=== PATIENT | female | born 1975 | race Caucasian/White ===

== ENCOUNTER 2016-12-20 17:38 | Emergency (ER) | payer MEDICAID ==
[2016-12-20 17:49] VITALS: RESP 16; TEMP 98.8
[2016-12-20 18:17] LABS: COLOR YELLOW; LEUKOCYTE ESTERASE,URINE NEGATIVE (NEGATIVE); NITRITE,URINE NEGATIVE (NEGATIVE); PH,URINE 8.5 (5.0-7.5)
[2016-12-20 18:27] LABS: BACTERIA TRACE /hpf (NONE SEEN); MUCUS 1+ /lpf (NONE-1+); RBC,URINE OCCASIONAL /hpf (0-3); WBC,URINE OCCASIONAL /hpf (0-3)
--- NOTE | 2016-12-20 18:28 | EDPHY ---
H & P Stated Complaint: stomach bloating, chills, ? Time Seen by Provider: 12/20/16 17:54 HPI/ROS: CHIEF COMPLAINT: Abdominal bloating, question History by patient HISTORY OF PRESENT ILLNESS: 41-year-old woman with history of related DVTs presents complaining of abdominal bloating, nausea of, weight gain and late menses. Her last menstrual period was November 19. Patient states she had sex on November 29 and the condom broke and now she is 4 days late on her menses which are usually quite regular. Patient is currently breast- feeding. Patient states she has gotten while breast-feeding in the past and that urine tests are always negative even when she is . She denies any vaginal discharge or bleeding. She has had no fever chills. She has had some urinary frequency but no dysuria. She does have some mild low back pain. Patient states that she has gained 20 lb over the last month. She says she has a pulling sensation in her suprapubic region. She denies any abdominal pain. She denies constipation has been having normal stools. She denies diarrhea. She has been eating without difficulty. REVIEW OF SYSTEMS: As in HPI, and all other systems reviewed and are negative Source: Patient - Personal History LMP (Females 10-55): Over 28 Days Ago - Medical/Surgical History Hx Asthma: No Hx Chronic Respiratory Disease: No Hx Diabetes: No Hx Cardiac Disease: No Hx Renal Disease: No Hx Cirrhosis: No Hx Alcoholism: No Hx HIV/AIDS: No Hx Splenectomy or Spleen Trauma: No Other PMH: hypothyroid, PE - Social History Smoking Status: Never smoked - Physical Exam Exam: General Appearance: Alert, pleasant, nontoxic-appearing. Eyes: Pupils equal and round no pallor or injection. ENT, Mouth: Mucous membranes moist. Respiratory: Normal, effort, There are no retractions, lungs are clear to auscultation. Cardiovascular: Regular rate and rhythm. Gastrointestinal: Abdomen is obese, soft and nontender, no distention, no masses, bowel sounds normal. Back: No CVA tenderness Neurological: Awake, alert and oriented x 3, no pronator drift, normal gait, no pronator drift Skin: Warm and dry, no rashes. Musculoskeletal: Neck is supple nontender. Extremities are symmetrical, full range of motion. Psychiatric: Patient has normal affect, there is no agitation. Constitutional: Initial Vital Signs Temperature (C) 37.1 C 12/20/16 17:41 Heart Rate 78 12/20/16 17:41 Respiratory Rate 16 12/20/16 17:41 Blood Pressure 101/86 H 12/20/16 17:41 O2 Sat (%) 100 12/20/16 17:41 O2 Delivery Mode Room Air Allergies/Adverse Reactions: diphenhydramine HCl [From Benadryl] Allergy (Severe, Verified 12/20/16 17:50) sob metoclopramide HCl [From Reglan] Allergy (Severe, Verified 12/20/16 17:50) Anaphylaxis ibuprofen Allergy (Intermediate, Verified 12/20/16 17:50) rapid heart beat prednisone Allergy (Intermediate, Verified 12/20/16 17:50) rapid heart rate Home Medications: Medication Instructions Recorded Citalopram [CeleXA 20 MG] 40 mg 08/12/12 Loratadine [Claritin 10 mg] 08/12/12 Thyroid 65 mg PO 08/12/12 Medical Decision Making ED Course/Re-evaluation: 41-year-old woman presents complaining of abdominal bloating and concerned about . Urinalysis showed no evidence of infection and urine test was negative. Because patient was very concerned about and states that she has had negative urine test while in the past we did do a serum test which was also negative. The patient is only 4 days late on her menses however and so I am recommending she has a repeat test in a few more days to confirm that she is not . She otherwise has a benign exam, stable vital signs and is nontoxic-appearing. I recommended follow up with her primary care physician at [facility]. - Data Points Laboratory Results: 12/20/16 12/20/16 12/20/16 18:50 18:15 18:15 Beta HCG, Qual NEGATIVE Urine Color YELLOW Urine Appearance CLEAR Urine pH 8.5 H (5.0-7.5) Ur Specific [place] 1.015 (1.002-1.030) Urine Protein NEGATIVE (NEGATIVE) Urine Ketones NEGATIVE (NEGATIVE) Urine Blood NEGATIVE (NEGATIVE) Urine Nitrate NEGATIVE (NEGATIVE) Urine Bilirubin NEGATIVE (NEGATIVE) Urine Urobilinogen 0.2 EU EU (0.2-1.0) Ur Leukocyte Esterase NEGATIVE (NEGATIVE) Urine RBC OCCASIONAL /hpf /hpf (0-3) Urine WBC OCCASIONAL /hpf /hpf (0-3) Ur Epithelial Cells TRACE /lpf /lpf (NONE-1+) Urine Bacteria TRACE /hpf H /hpf (NONE SEEN) Urine Mucus 1+ /lpf /lpf (NONE-1+) Urine Glucose NEGATIVE (NEGATIVE) Urine Test NEGATIVE Departure - Departure Disposition: Home, Routine, Self-Care Clinical Impression: Abdominal bloating Condition: Good Instructions: Gas and Bloating (ED) Additional Instructions: You were seen by Dr. Renetta Paniagua today. Your test was negative by urine and blood test today. However you are still in the window where it may be too early to tell. You should have a repeat test next week. Return for any worsening or new concerns. Referrals: NONE *PRIMARY CARE P,. [Primary Care Provider] - As per Instructions
[2016-12-21 00:08] VITALS: BP 107/62; PULSE 75; O2SAT 96
== END 2016-12-20 19:25 | disposition home or self-care (01) ==
LOC: CED 17:38
DX: R14.0 Abdominal distension (gaseous) (principal)
CPT/HCPCS: 81003-PO; 81015-PO; 81025-PO; 84703-PO

== ENCOUNTER 2017-01-15 01:58 | Emergency (ER) | payer MEDICAID ==
[2017-01-15 02:10] VITALS: BP 129/83; PULSE 83; RESP 16; TEMP 98.1; O2SAT 95
--- NOTE | 2017-01-15 02:11 | EDPHY ---
H & P Time Seen by Provider: 01/15/17 02:00 HPI/ROS: This 41-year-old female with past medical history of portal vein thrombosis during , a possible TIA related to an implantable contraception device , and hypothyroidism presents to the emergency room today after being called for abnormal lab values that she had drawn a couple days ago. She states they told her she was anemic and her blood sugar was abnormal as well. She has been feeling fatigued with a pressure in the back of her head and has been having visual disturbances (blurred vision? floaters?) over the last couple weeks. She has had increased thirst and increased urination. She also states she has had hives and her skin has felt pruritic. Sometimes she feels "swollen." She denies recent illness such as fever, chills, sore throat, chest pain, shortness of breath, abdominal pain, leg pain or unilateral swelling, dysuria, constipation or diarrhea. REVIEW OF SYSTEMS: Constitutional: No fever, no chills. +fatigue Eyes: No discharge. ENT: No sore throat. Respiratory: No cough, no shortness of breath. Cardiac: No chest pain, +palpitations; Gastrointestinal: No abdominal pain, no vomiting. Genitourinary: No hematuria. +frequent urination Musculoskeletal: No neck or back pain, occasionally feels like hands and feet swell. Skin: No current rashes. Neurological: No numbness, tingling or asymmetric weakness. The remainder of the 14 point ROS is negative. Past Medical/Surgical History: Past medical history includes portal vein thrombosis, possible TIA, hypothyroidism, depression Past surgical history denied Family history is positive for her father having 3 myocardial infarctions in his 60s, and her mother had some sort of cancer she thinks it might have been ovarian Allergies include Reglan, prednisone, ibuprofen and Benadryl Medications include Celexa and thyroid medication Social History: No tobacco products, no alcohol, no marijuana or other drugs. . (2 spontaneous abortions). Smoking Status: Never smoked (No tobacco products or alcohol products or marijuana) Physical Exam: General Appearance: Alert, no distress, slightly anxious. Skin: Warm and dry, no rashes. Normal for ethnicity. HEENT: NC/AT, pupils are equally round and reactive to light and accommodation, extraocular muscles intact, conjunctivae normal, oropharynx clear and mucosa is moist. Neck: Supple, no JVD, nontender, no meningeal signs. Respiratory: There are no retractions, lungs are clear to auscultation. Cardiovascular: Regular rate and rhythm, requent ectopic beats, 2/6 KRISTA? Gastrointestinal: Abdomen is soft and nontender, no masses, bowel sounds normal. Neurological: Awake and alert, sensory and motor exams grossly normal. No focal findings. Musculoskeletal: No neck or back pain. Extremities are symmetrical, full range of motion, no edema. No calf pain or swelling, no warmth, cords, or erythema. Psychiatric: Patient is oriented X 3, there is no agitation. DIFFERENTIAL DIAGNOSIS: After history and physical exam differential diagnosis was considered for anemia, hyperglycemia, fatigue, electrolyte abnormality, : Hypothyroidism or hyperthyroidism presumably ruled out as the patient states she was told her TSH was normal today. Constitutional: Initial Vital Signs Temperature (C) 98.1 F 01/15/17 02:05 Heart Rate 83 01/15/17 02:05 Respiratory Rate 16 01/15/17 02:05 Blood Pressure 129/83 H 01/15/17 02:05 O2 Sat (%) 95 01/15/17 02:05 O2 Delivery Mode Room Air Allergies/Adverse Reactions: diphenhydramine HCl [From Benadryl] Allergy (Severe, Verified 01/15/17 02:10) sob metoclopramide HCl [From Reglan] Allergy (Severe, Verified 01/15/17 02:10) Anaphylaxis ibuprofen Allergy (Intermediate, Verified 01/15/17 02:10) rapid heart beat prednisone Allergy (Intermediate, Verified 01/15/17 02:10) rapid heart rate Home Medications: Medication Instructions Recorded Citalopram [CeleXA 20 MG] 40 mg 08/12/12 Loratadine [Claritin 10 mg] 08/12/12 Thyroid 65 mg PO 08/12/12 Medical Decision Making ED Course/Re-evaluation: The patient was seen and examined. VS reviewed/orthostatics wnl. I reviewed all her labs with her: CBC remarkable for a microcytic, hypochromic anemia with an Hg/Hct of 9.4/30.8 respectively compared to 10.9/34.9 on 05/16/15. The patient states she had to have a blood transfusion when she miscarried. Her CMP including Mg are wnl including her blood glucose at 85. Her UA is wnl and her beta HCG is negative. The patient states her primary told her that her thyroid studies are normal and that there are still some tests pending (?iron studies). The patient was reassured and will follow up with her primary care provider next week. She will return to the ER sooner if any further problems or concerns. - Data Points Laboratory Results: Laboratory Results 01/15/17 02:12 01/15/17 02:12 01/15/17 01/15/17 01/15/17 02:23 02:12 02:12 WBC RBC Hgb Hct MCV MCH MCHC RDW Plt Count MPV Neut % (Auto) Lymph % (Auto) [place] % (Auto) Eos % (Auto) Baso % (Auto) Nucleat RBC Rel Count Absolute Neuts (auto) Absolute Lymphs (auto) Absolute Monos (auto) Absolute Eos (auto) Absolute Basos (auto) Absolute Nucleated RBC Immature Gran % Immature Gran # PT INR APTT Sodium 142 mEq/L mEq/L (134-144) Potassium 3.5 mEq/L mEq/L (3.5-5.2) Chloride 104 mEq/L mEq/L (97-110) Carbon Dioxide 24 mEq/l mEq/l (22-31) Anion Gap 14 mEq/L mEq/L (8-16) BUN 10 mg/dL mg/dL (7-23) Creatinine 0.5 mg/dL L mg/dL (0.6-1.0) Estimated GFR > 60 Glucose 85 mg/dL mg/dL (70-100) Calcium 9.3 mg/dL mg/dL (8.5-10.4) Magnesium 1.9 mg/dL mg/dL (1.6-2.3) Total Bilirubin 0.3 mg/dL mg/dL (0.1-1.4) Conjugated Bilirubin 0.2 mg/dL mg/dL (0.0-0.5) Unconjugated Bilirubin 0.1 mg/dL mg/dL (0.0-1.1) AST 20 IU/L IU/L (14-46) ALT 28 IU/L IU/L (9-52) Alkaline Phosphatase 83 IU/L IU/L (38-126) Total Protein 7.5 g/dL g/dL (6.3-8.2) Albumin 4.2 g/dL g/dL (3.5-5.0) Beta HCG, Qual NEGATIVE Urine Color YELLOW Urine Appearance CLEAR Urine pH 7.0 (5.0-7.5) Ur Specific [place] <= 1.005 (1.002-1.030) Urine Protein NEGATIVE (NEGATIVE) Urine Ketones NEGATIVE (NEGATIVE) Urine Blood NEGATIVE (NEGATIVE) Urine Nitrate NEGATIVE (NEGATIVE) Urine Bilirubin NEGATIVE (NEGATIVE) Urine Urobilinogen 0.2 EU EU (0.2-1.0) Ur Leukocyte Esterase NEGATIVE (NEGATIVE) Urine Glucose NEGATIVE (NEGATIVE) 01/15/17 01/15/17 02:12 02:12 WBC 7.81 10^3/uL 10^3/uL (3.80-9.50) RBC 4.46 10^6/uL 10^6/uL (4.18-5.33) Hgb 9.4 g/dL L g/dL (12.6-16.3) Hct 30.8 % L % (38.0-47.0) MCV 70.0 fL L fL (81.5-99.8) MCH 21.1 pg L pg (27.9-34.1) MCHC 30.5 g/dL L g/dL (32.4-36.7) RDW 18.0 % H % (11.5-15.2) Plt Count 307 10^3/uL 10^3/uL (150-400) MPV 10.1 fL fL (8.7-11.7) Neut % (Auto) 56.5 % % (39.3-74.2) Lymph % (Auto) 30.2 % % (15.0-45.0) Sandoval % (Auto) 8.8 % % (4.5-13.0) Eos % (Auto) 4.1 % % (0.6-7.6) Baso % (Auto) 0.1 % L % (0.3-1.7) Nucleat RBC Rel Count 0.0 % % (0.0-0.2) Absolute Neuts (auto) 4.41 10^3/uL 10^3/uL (1.70-6.50) Absolute Lymphs (auto) 2.36 10^3/uL 10^3/uL (1.00-3.00) Absolute Monos (auto) 0.69 10^3/uL 10^3/uL (0.30-0.80) Absolute Eos (auto) 0.32 10^3/uL 10^3/uL (0.03-0.40) Absolute Basos (auto) 0.01 10^3/uL L 10^3/uL (0.02-0.10) Absolute Nucleated RBC 0.00 10^3/uL 10^3/uL (0-0.01) Immature Gran % 0.3 % % (0.0-1.1) Immature Gran # 0.02 10^3/uL 10^3/uL (0.00-0.10) PT 12.7 SEC SEC (12.0-15.0) INR 0.98 (0.83-1.16) APTT 27.6 SEC SEC (23.0-38.0) Sodium Potassium Chloride Carbon Dioxide Anion Gap BUN Creatinine Estimated GFR Glucose Calcium Magnesium Total Bilirubin Conjugated Bilirubin Unconjugated Bilirubin AST ALT Alkaline Phosphatase Total Protein Albumin Beta HCG, Qual Urine Color Urine Appearance Urine pH Ur Specific [place] Urine Protein Urine Ketones Urine Blood Urine Nitrate Urine Bilirubin Urine Urobilinogen Ur Leukocyte Esterase Urine Glucose Departure - Departure Disposition: Home, Routine, Self-Care Clinical Impression: Anemia, Palpitations Condition: Good Instructions: Palpitations (ED), Iron Rich Diet (ED), Iron Deficiency Anemia ( ED), Anemia (ED) Additional Instructions: Follow up with your provider and take the lab results we did tonight with you to your next appointment. You may need iron supplementation in pill or infusion form. Ask them about your palpitations (premature atrial or ventricular contractions). I also think you may have a faint heart murmur. Your doctor may want to have you have an Echocardiogram. Referrals: Patient,NotPresent [Primary Care Provider] - 5-7 days, call for appt. (Follow up with your doctor next week.)
[2017-01-15 02:22] LABS: % IMMATURE GRANULYOCYTES 0.3 % (0.0-1.1); ABSOLUTE IMMATURE GRANULOCYTES 0.02 10^3/uL (0.00-0.10); ADD DIFF? NO; ADD SCAN? NO; ATYPICAL LYMPHOCYTE FLAG 20 (0-99); FRAGMENT RBC FLAG 20 (0-99); HEMATOCRIT 30.8 % (38.0-47.0); HEMOGLOBIN 9.4 g/dL (12.6-16.3); LEFT SHIFT FLG 0 (0-99); LIPEMIA HEMOLYSIS FLAG 80 (0-99); MEAN CELL HEMOGLOBIN 21.1 pg (27.9-34.1); MEAN CELL HEMOGLOBIN CONCENTR. 30.5 g/dL (32.4-36.7); MEAN PLATELET VOLUME 10.1 fL (8.7-11.7); PLATELET CLUMPS FLAG 0 (0-99); PLATELET COUNT 307 10^3/uL (150-400); RED BLOOD CELL COUNT 4.46 10^6/uL (4.18-5.33)
[2017-01-15 02:23] LABS: ADD MORPH? NO
[2017-01-15 02:31] LABS: COLOR YELLOW; LEUKOCYTE ESTERASE,URINE NEGATIVE (NEGATIVE); NITRITE,URINE NEGATIVE (NEGATIVE)
[2017-01-15 02:32] LABS: INR 0.98 (0.83-1.16); PROTIME(PATIENT) 12.7 SEC (12.0-15.0)
[2017-01-15 02:33] LABS: APTT 27.6 SEC (23.0-38.0)
[2017-01-15 02:35] LABS: ALANINE AMINOTRANSFERASE 28 IU/L (9-52); ALBUMIN 4.2 g/dL (3.5-5.0); ALKALINE PHOSPHATASE 83 IU/L (38-126); ANION GAP 14 mEq/L (8-16); ASPARTATE AMINOTRANSFERASE 20 IU/L (14-46); BILIRUBIN,TOTAL 0.3 mg/dL (0.1-1.4); BILIRUBIN-CONJUGATED 0.2 mg/dL (0.0-0.5); BILIRUBIN-UNCONJUGATED 0.1 mg/dL (0.0-1.1); CALCIUM 9.3 mg/dL (8.5-10.4); CARBON DIOXIDE 24 mEq/l (22-31); CHLORIDE 104 mEq/L (97-110); CREATININE 0.5 mg/dL (0.6-1.0); GLOMERULAR FILTRATION RATE > 60; GLUCOSE 85 mg/dL (70-100); MAGNESIUM 1.9 mg/dL (1.6-2.3); POTASSIUM 3.5 mEq/L (3.5-5.2); SODIUM 142 mEq/L (134-144); TOTAL PROTEIN 7.5 g/dL (6.3-8.2)
== END 2017-01-15 03:17 | disposition home or self-care (01) ==
LOC: CED 01:58
DX: R00.2 Palpitations (principal); D64.9 Anemia, unspecified; R79.1 Abnormal coagulation profile
CPT/HCPCS: 80048-PO; 80076-PO; 81003-PO; 83735-PO; 84703-PO; 85025-PO; 85610-PO; 85730-PO

== ENCOUNTER 2017-06-22 01:33 | Emergency (ER) | payer MEDICAID ==
[2017-06-22 01:45] VITALS: RESP 16; TEMP 97.5; O2SAT 97
[2017-06-22 01:48] LABS: COLOR YELLOW; LEUKOCYTE ESTERASE,URINE 2+ (NEGATIVE); NITRITE,URINE NEGATIVE (NEGATIVE)
[2017-06-22 01:53] LABS: MUCUS 2+ /lpf (NONE-1+)
[2017-06-22 01:54] LABS: BACTERIA 1+ /hpf (NONE SEEN)
--- NOTE | 2017-06-22 02:11 | EDPHY ---
H & P Time Seen by Provider: 06/22/17 02:05 HPI/ROS: HPI Burning with urination. 41-year-old female by private vehicle. This patient reports that she has had intermittent burning with urination and some scant whitish discharge from her vagina for the last month. She reports that she has been prescribed twice by by her primary care physician at [facility] for yeast infection over this time. She has been given a 1 time dose of fluconazole. She reports that she had relief of her symptoms for several days up to a week but she reports that her burning with urination and strong smelling urine returned yesterday. She denies any other associated signs or symptoms. ROS: Constitutional: No fever, no chills. No weakness. Eyes: No discharge. No changes in vision. ENT: No sore throat. No nasal congestion or rhinorrhea. Respiratory: No cough. No shortness of breath. Cardiac: No chest pain, no palpitations. Gastrointestinal: No abdominal pain, no vomiting, no diarrhea. Genitourinary: No hematuria. As above. Musculoskeletal: No back pain. No neck pain. No myalgias or arthralgias. Skin: No rashes. Neurological: No headache. No focal weakness or altered sensation. Past medical history: Hypothyroid, portal vein thrombosis associated with , depression, possible TIA. As above. Primary care is through [facility]. Social history: Nonsmoker. . Has children. Denies alcohol. Physical Exam: General Appearance: Alert, no distress. This patient is responding to questions appropriately and in full sentences. This patient appears well- hydrated and well-nourished. Eyes: Pupils equal and round no pallor or injection. No lid edema, erythema or injection. Gastrointestinal: Abdomen is soft and nontender, no masses, bowel sounds normal. No focal tenderness at McBurney's point. No Nguyen sign. Neurological: Motor sensory function is grossly intact. Cranial nerves are normal. Gait is normal. Skin: Warm and dry, no rashes. Musculoskeletal: No CVA tenderness on palpation bilaterally. Extremities are symmetrical. All joints range without pain or impingement. Psychiatric: No agitation. No depression. Database: EKG: Imaging: Procedures: Emergency department course: Her vital signs have been reviewed and are normal. She has a benign abdomen. Her presentation is consistent with a urinary tract infection. She also told me that she is concerned about a possible STD. I will check her for GC and chlamydia. 2:25 a.m., her urinalysis is indicative of a urinary tract infection. She was given 500 mg of oral Keflex. She was also given a 1 time dose of fluconazole 150 mg to treat a possible vaginal candidiasis. She will follow up with her primary care physician at [facility] in 1-2 days for re-evaluation and a pelvic exam if needed. She was instructed to call back for her GC and chlamydia results in 1-2 days. She feels comfortable with this plan. Return to emergency department precautions were reviewed with her. All of her questions were answered. She was discharged in good condition. Differential Diagnosis: The differential diagnosis on this patient includes but is not limited to urinary tract infection, yeast infection. STI unlikely. This represents a partial list of diagnoses considered. These considerations are based on history , physical exam, past history, reassessment and diagnostic testing. Smoking Status: Never smoked Constitutional: Initial Vital Signs Temperature (C) 36.4 C 06/22/17 01:43 Heart Rate 78 06/22/17 01:43 Respiratory Rate 16 06/22/17 01:43 Blood Pressure 103/74 06/22/17 01:43 O2 Sat (%) 97 06/22/17 01:43 O2 Delivery Mode Room Air Allergies/Adverse Reactions: diphenhydramine HCl [From Benadryl] Allergy (Severe, Verified 06/22/17 01:45) sob metoclopramide HCl [From Reglan] Allergy (Severe, Verified 06/22/17 01:45) Anaphylaxis ibuprofen Allergy (Intermediate, Verified 06/22/17 01:45) rapid heart beat prednisone Allergy (Intermediate, Verified 06/22/17 01:45) rapid heart rate Home Medications: Medication Instructions Recorded Citalopram [CeleXA 20 MG] 40 mg 08/12/12 Thyroid 65 mg PO 08/12/12 Cephalexin [Keflex (*)] 500 mg PO Q6 6 Days cap 06/22/17 Medical Decision Making - Data Points Laboratory Results: 06/22/17 06/22/17 01:42 01:42 Urine Color YELLOW Urine Appearance CLEAR Urine pH 6.0 (5.0-7.5) Ur Specific [place] 1.020 (1.002-1.030) Urine Protein NEGATIVE (NEGATIVE) Urine Ketones NEGATIVE (NEGATIVE) Urine Blood NEGATIVE (NEGATIVE) Urine Nitrate NEGATIVE (NEGATIVE) Urine Bilirubin NEGATIVE (NEGATIVE) Urine Urobilinogen 0.2 EU EU (0.2-1.0) Ur Leukocyte Esterase 2+ H (NEGATIVE) Urine RBC 1-3 /hpf /hpf (0-3) Urine WBC 5-10 /hpf H /hpf (0-3) Ur Epithelial Cells 1+ /lpf /lpf (NONE-1+) Urine Bacteria 1+ /hpf H /hpf (NONE SEEN) Urine Mucus 2+ /lpf H /lpf (NONE-1+) Urine Glucose NEGATIVE (NEGATIVE) Urine Test NEGATIVE Departure - Departure Disposition: Home, Routine, Self-Care Clinical Impression: Urinary tract infection, Yeast infection Condition: Good Instructions: Urinary Tract Infection in Women (ED), Yeast Infection (ED) Additional Instructions: Read and follow provided instructions. Follow-up with your primary care physician in 1-2 days for re-evaluation and pelvic exam as discussed. Take medication as prescribed through entire course of treatment. Your STI testing results should be available in the next 1-2 days. Call back here for results. Return to the emergency department for worsening symptoms, fever, back pain, vomiting or other serious concerns. Referrals: [facility] ([facility],. [Edm Groups for Call Sched] - As per Instructions Prescriptions: Cephalexin [Keflex (*)] 500 mg PO Q6 6 Days cap
[2017-06-22] MEDS ORDERED: CEPHALEXIN 500 MG CAP PO ONE (02:15)
[2017-06-22] MEDS ORDERED: CEPHALEXIN 500MG PREPACK#4 BTL TAKEHOME ONE (02:17)
[2017-06-22] MEDS ORDERED: FLUCONAZOLE 150 MG TAB PO ONE (02:23)
[2017-06-22 02:46] VITALS: BP 119/68; PULSE 72
== END 2017-06-22 02:40 | disposition home or self-care (01) ==
LOC: CED 01:33
DX: B37.9 Candidiasis, unspecified (principal); N39.0 Urinary tract infection, site not specified; B96.89 Other specified bacterial agents as the cause of diseases classified elsewhere
CPT/HCPCS: 81003-PO; 81015-PO; 81025-PO

== ENCOUNTER 2017-12-31 12:09 | Emergency (ER) | payer MEDICAID ==
[2017-12-31 12:21] VITALS: BP 116/64
--- NOTE | 2017-12-31 12:47 | EDPHY ---
H & P Time Seen by Provider: 12/31/17 12:26 HPI/ROS: Patient presented to the emergency department with concerns of lightheadedness. She states that 2 days ago she felt like she was having"hormonal changes". She states she"feels like I am ." Her last normal menstrual period was December 06 through December 10. She received a urine test illness emergency department which was negative. She asked for blood test for and I explained that it was not available at this facility and that it would need to be sent to [facility]. At that time patient asked to be discharged. I explained to her that I had not evaluated her sufficiently to rule out an emergent medical condition. She is of sound mind and decision making capacity and chose to leave prior to completion of evaluation. Vital signs reviewed and were all within normal limits. Patient in no apparent distress. No further physical exam performed. Smoking Status: Never smoked Constitutional: Initial Vital Signs Temperature (C) 36.9 C 12/31/17 12:17 Heart Rate 80 12/31/17 12:17 Respiratory Rate 16 12/31/17 12:17 Blood Pressure 116/64 12/31/17 12:17 O2 Sat (%) 99 12/31/17 12:17 O2 Delivery Mode Room Air Allergies/Adverse Reactions: diphenhydramine HCl [From Benadryl] Allergy (Severe, Verified 12/31/17 12:35) sob metoclopramide HCl [From Reglan] Allergy (Severe, Verified 12/31/17 12:35) Anaphylaxis ibuprofen Allergy (Intermediate, Verified 12/31/17 12:35) rapid heart beat prednisone Allergy (Intermediate, Verified 12/31/17 12:35) rapid heart rate Home Medications: Medication Instructions Recorded Citalopram [CeleXA 20 MG] 40 mg 08/12/12 Thyroid 65 mg PO 08/12/12 Medical Decision Making Differential Diagnosis: Patient left prior to completion of evaluation. - Data Points Point of Care Test Results: Urine Collection Date 12/31/17 Collection Time 12:25 HCG Results Negative Urine Dip Collection Date 12/31/17 Collection Time 12:25 Specific [place] (1.002-1.030) 1.030 PH (5.0-7.5) 6.0 Leukocytes (Negative) Negative Nitrites (Negative) Negative Protein (Negative) 1+ Glucose (Negative) Negative Ketones (Negative) 1+ Urobilnogen (0.2-1.0 EU) 1.0 Blood (Negative) Negative Departure - Departure Clinical Impression: Lightheadedness Condition: Good Referrals: NONE *PRIMARY CARE P,. [Primary Care Provider] - As per Instructions
== END 2017-12-31 12:48 | disposition home or self-care (01) ==
LOC: CED 12:09
DX: R42 Dizziness and giddiness (principal)

== ENCOUNTER 2018-03-22 10:11 | Emergency (ER) | payer MEDICAID ==
--- NOTE | 2018-03-22 10:44 | EDPHY ---
H & P Stated Complaint: PT. states lightheadedness this am,itchy palms-x2 weeks, Time Seen by Provider: 03/22/18 10:19 HPI/ROS: CHIEF COMPLAINT: Lightheaded, itchy palm, "not feeling well" History by patient HISTORY OF PRESENT ILLNESS: 42-year-old woman with history of anemia, hypothyroidism presents complaining of feeling like her palms are itchy, feeling hot this morning when she got up and slightly lightheaded but no true syncope. She denies any nausea or vomiting. She is worried that maybe her blood sugars low or that her thyroid is off or that she is . She is and sexually active but not using any control. Her last period was 2 weeks ago. She says she sometimes feels like she is having heart palpitations although she is not having that currently. She tried to get an appointment with her regular doctor at [facility] but she was waiting more than hour no called her back so she decided to come in. She denies any chest pain or trouble breathing. She denies any swelling. She has lost weight over the past few months without trying. She denies any fevers. There has been no change in her thyroid hormone dosing and she says she takes the medicine every day. She last had it checked about a 8 months ago. She says she has been told she was prediabetic in the past. She is not on any medications for diabetes. She does take loratadine intermittently for her itchy palms and recurrent hives, which she says does not help. Patient states that she takes Benadryl she gets short of breath. REVIEW OF SYSTEMS: As in HPI, and all other systems reviewed and are negative Source: Patient - Personal History LMP (Females 10-55): 15-21 Days Ago Current Tetanus Diphtheria and Acellular Pertussis (TDAP): Unsure - Medical/Surgical History Hx Asthma: No Hx Chronic Respiratory Disease: No Hx Diabetes: No Hx Cardiac Disease: No Hx Renal Disease: No Hx Cirrhosis: No Hx Alcoholism: No Hx HIV/AIDS: No Hx Splenectomy or Spleen Trauma: No Other PMH: hypothyroid, Portal Vein Thrombosis post , depression, possible TIA,anxiety - Social History Smoking Status: Never smoked - Physical Exam Exam: General Appearance: Alert, comfortable, nontoxic appearing, speaking full sentences Head: normocephalic, atraumatic Eyes: Pupils equal and round, reactive to light, no pallor or injection. Mouth: Mucous membranes moist. Oropharynx clear Neck: No bony tenderness, full range of motion Respiratory: Normal, effort, lungs are clear to auscultation. No wheezes, rales or rhonchi. Cardiovascular: Regular rate and rhythm. S1, S2, no murmurs, gallops or rubs appreciated Gastrointestinal: Abdomen is soft and nontender, no masses, bowel sounds normal. Back: No CVA tenderness, no bony tenderness Neurological: Awake, alert and oriented x 3, cranial nerves 2-12 intact, no pronator drift, normal gait, Skin: Warm and dry, no rashes. Musculoskeletal: No deformities or tenderness. Extremities: full range of motion, no edema, DP2+ bilat Psychiatric: Patient has normal affect, there is no agitation. Constitutional: Initial Vital Signs Temperature (C) 36.6 C 03/22/18 10:17 Heart Rate 86 03/22/18 10:17 Respiratory Rate 16 03/22/18 10:17 Blood Pressure 122/78 H 03/22/18 10:17 O2 Sat (%) 99 03/22/18 10:17 O2 Delivery Mode Room Air Allergies/Adverse Reactions: diphenhydramine HCl [From Benadryl] Allergy (Severe, Verified 03/22/18 10:16) sob metoclopramide HCl [From Reglan] Allergy (Severe, Verified 03/22/18 10:16) Anaphylaxis ibuprofen Allergy (Intermediate, Verified 03/22/18 10:16) rapid heart beat prednisone Allergy (Intermediate, Verified 03/22/18 10:16) rapid heart rate Home Medications: Medication Instructions Recorded Citalopram [CeleXA 20 MG] 40 mg 08/12/12 Thyroid 65 mg PO 08/12/12 Medical Decision Making ED Course/Re-evaluation: 42-year-old woman presents with multiple nonspecific symptoms with concerns that she might be anemic, her thyroid might be off or that she is . Patient has unremarkable exam and her vital signs are within normal limits. Urine test was negative and her blood sugar was within normal limits and her hemoglobin was within normal limits which is an improvement from prior. TSH was sent at the patient's request and is pending at time dictation. Today there is no evidence of significant systemic toxicity or emergent medical condition. I reviewed the patient's old records and she has similar past visits for similar complaints and similarly normal evaluations. Patient was given reassurance and I recommend she follow up with her primary care physician regarding her thyroid. - Data Points Laboratory Results: 03/22/18 03/22/18 11:00 10:42 POC Hgb 12.6 gm/dL gm/dL (12.6-16.3) POC Hct 37 % L % (38-47) POC Sodium 141 mEq/L mEq/L (135-145) POC Potassium 3.6 mEq/L mEq/L (3.3-5.0) POC Chloride 106 mEq/L mEq/L (97-110) POC BUN 9 mg/dL mg/dL (7-23) POC Creatinine 0.7 mg/dL mg/dL (0.6-1.0) POC Glucose 95 mg/dL mg/dL 104 mg/dL H mg/dL (70-100) (70-100) Point of Care Test Results: Chemistry 03/22/18 03/22/18 11:00 10:42 POC Sodium 141 mEq/L mEq/L (135-145) POC Potassium 3.6 mEq/L mEq/L (3.3-5.0) POC Chloride 106 mEq/L mEq/L (97-110) POC BUN 9 mg/dL mg/dL (7-23) POC Creatinine 0.7 mg/dL mg/dL (0.6-1.0) POC Glucose 95 mg/dL mg/dL 104 mg/dL H mg/dL (70-100) (70-100) ISTAT H&H 03/22/18 11:00 POC Hgb 12.6 gm/dL gm/dL (12.6-16.3) POC Hct 37 % L % (38-47) Urine Collection Date 03/22/18 Collection Time 10:35 HCG Results Negative Departure - Departure Disposition: Home, Routine, Self-Care Clinical Impression: Dizziness, nonspecific Condition: Good Instructions: Dizziness (ED) Additional Instructions: You were seen by Dr. Renetta Paniagua today. Today your blood sugar and hemoglobin were within normal limits. Your test was negative. Your thyroid test is pending you may call for those results tomorrow. I recommend trying to cetirizine 10 mg once daily instead of loratadine for your itching. Return for any worsening or new concerns.
[2018-03-22 11:22] VITALS: BP 115/68
== END 2018-03-22 11:21 | disposition home or self-care (01) ==
LOC: CED 10:11
DX: R42 Dizziness and giddiness (principal); E03.9 Hypothyroidism, unspecified
CPT/HCPCS: 82435-PO; 82565-PO; 82947-PO; 84132-PO; 84295-PO; 84520-PO; 85014-PO

== ENCOUNTER 2018-04-03 01:08 | Emergency (ER) | payer MEDICAID | END 2018-04-03 01:22 | disposition left against medical advice (07) | LOC: CED 01:08 | DX: F41.9 Anxiety disorder, unspecified (principal); Z53.21 Procedure and treatment not carried out due to patient leaving prior to being seen by health care provider ==

== ENCOUNTER 2018-07-23 19:47 | Emergency (ER) | payer MEDICAID ==
[2018-07-23] MEDS ORDERED: NS 1,000 ML IV ONE (20:01)
--- NOTE | 2018-07-23 20:10 | EDPHY ---
H & P Time Seen by Provider: 07/23/18 19:58 HPI/ROS: Chief complaint. Abdominal pain HPI. 43-year-old female with recent diagnosis of on July 20 as well as a UTI presents with 1 day history of low back and low abdominal cramping type pain. No vaginal bleeding or spotting. A patient is 9/ para 6. She is taking cephalexin for her antibiotic for UTI. She felt warm earlier today but did not take temperature. No cough or chest pain or trouble breathing. Nausea but no vomiting or diarrhea. Her urinary symptoms are improving ROS 10 systems were reviewed and negative with the exception of the elements mentioned in the history of present illness Past Medical/Surgical History: Anemia, hypothyroid, portal vein thrombosis with Social History: , nonsmoker, no alcohol Smoking Status: Never smoked Physical Exam: General Appearance: Alert well-developed female mild distress vital signs are stable Eyes: Pupils equal and round no pallor or injection. ENT, Mouth: Mucous membranes are moist. Respiratory: There are no retractions, lungs are clear to auscultation. Cardiovascular: Regular rate and rhythm. Gastrointestinal: Abdomen is soft with mild suprapubic tenderness. No masses. Normal bowel sounds Neurological: Awake and alert, sensory and motor exams grossly normal. Skin: Warm and dry, no rashes. Musculoskeletal: Neck is supple nontender. Extremities symmetrical, full range of motion. Psychiatric: Patient is oriented X 3, there is no agitation. Constitutional: Initial Vital Signs Temperature (C) 36.4 C 07/23/18 20:04 Heart Rate 75 07/23/18 20:04 Respiratory Rate 16 07/23/18 20:04 Blood Pressure 116/42 L 07/23/18 20:04 O2 Sat (%) 98 07/23/18 20:04 O2 Delivery Mode Room Air Allergies/Adverse Reactions: diphenhydramine HCl [From Benadryl] Allergy (Severe, Verified 07/23/18 20:03) sob metoclopramide HCl [From Reglan] Allergy (Severe, Verified 07/23/18 20:03) Anaphylaxis ibuprofen Allergy (Intermediate, Verified 07/23/18 20:03) rapid heart beat prednisone Allergy (Intermediate, Verified 07/23/18 20:03) rapid heart rate Home Medications: Medication Instructions Recorded Citalopram [CeleXA 20 MG] 40 mg 08/12/12 Levothyroxine 04/03/18 Cephalexin 07/23/18 Medical Decision Making - Diagnostics Imaging Results: Imaging Impressions Pelvic/Renal Ultrasound 07/23/18 20:07 Impression: Essentially unremarkable pelvic ultrasound. Deacon Santoyo was notified of these findings by telephone at 10:40 PM on 2018 Ultrasound reviewed by me and discussed with Radiology shows a normal pelvic ultrasound. No evidence of Procedures: IV normal saline ED Course/Re-evaluation: Point of care urine test is negative Point of care CBC is normal Re-evaluation 10:50 p.m.. Patient is stable. She and I discussed imaging and lab results. We discussed treatment plan including criteria for return and importance of follow-up and further evaluation. She expresses understanding and agreement Differential Diagnosis: I considered intrauterine as well as ectopic . There is no evidence of at this time - Data Points Laboratory Results: 07/23/18 20:31 POC Sodium 141 mEq/L mEq/L (135-145) POC Potassium 3.2 mEq/L L mEq/L (3.3-5.0) POC Chloride 109.0 mEq/L mEq/L (97-110) POC Total CO2 25 mEq/L mEq/L (22-31) POC BUN 13 mg/dL mg/dL (7-23) POC Creatinine 0.7 mg/dL mg/dL (0.6-1.0) POC Glucose 95 mg/dL mg/dL (70-100) POC Calcium 9.8 mg/dL mg/dL (8.5-10.4) Medications Given: Discontinued Medications Sodium Chloride (Ns) 1,000 mls @ 0 mls/hr IV EDNOW ONE; Wide Open PRN Reason: Protocol Stop: 07/23/18 20:02 Last Admin: 07/23/18 20:20 Dose: 1,000 mls Point of Care Test Results: CBC CBC Collection Date 07/23/18 CBC Collection Time 20:17 WBC 4.4 RBC 4.85 HGB 12.7 HCT 38.7 PLT 273 Neut # 1.8 Neut 39.4 LYMPH # 2.3 LYMPH 53.2 Other WBC # 0.3 Other WBC 7.4 MCV 79.8 Chemistry 07/23/18 20:31 POC Sodium 141 mEq/L mEq/L (135-145) POC Potassium 3.2 mEq/L L mEq/L (3.3-5.0) POC Chloride 109.0 mEq/L mEq/L (97-110) POC Total CO2 25 mEq/L mEq/L (22-31) POC BUN 13 mg/dL mg/dL (7-23) POC Creatinine 0.7 mg/dL mg/dL (0.6-1.0) POC Glucose 95 mg/dL mg/dL (70-100) POC Calcium 9.8 mg/dL mg/dL (8.5-10.4) Urine Collection Date 07/23/18 Collection Time 20:20 HCG Results Negative Urine Dip Collection Date 07/23/18 Collection Time 20:05 Specific [place] (1.002-1.030) 1.005 PH (5.0-7.5) 6.0 Leukocytes (Negative) Negative Nitrites (Negative) Negative Protein (Negative) Negative Glucose (Negative) Negative Ketones (Negative) Negative Urobilnogen (0.2-1.0 EU) 0.2 Bilirubin (Negative) Negative Blood (Negative) Negative Departure - Departure Disposition: Home, Routine, Self-Care Clinical Impression: Abdominal pain Qualifiers: Abdominal location: lower abdomen, unspecified Qualified Code(s): R10.30 - Lower abdominal pain, unspecified Condition: Good Instructions: Acute Abdominal Pain (ED) Additional Instructions: Return for worsening symptoms Follow up with your physician at [facility] on Thursday without fail Referrals: FERDINAND HAIR [Primary Care Provider] - As per Instructions
[2018-07-23 21:43] VITALS: BP 106/59
== END 2018-07-23 23:10 | disposition home or self-care (01) ==
LOC: CED 19:47
DX: R10.30 Lower abdominal pain, unspecified (principal); M54.5 Low back pain; E86.9 Volume depletion, unspecified
CPT/HCPCS: 76856-PO; 80048-ER; 96360-ER